=== PATIENT | male | born 1980 | race Two or more races ===

== ENCOUNTER 2017-08-22 15:31 | Emergency (ER) | payer SELFPAY ==
[2017-08-22 15:41] VITALS: TEMP 98.2; O2SAT 96
--- NOTE | 2017-08-22 15:50 | CPEKG ---
Heart Rate: 96 RR Interval: 625 P-R Interval: 156 QRSD Interval: 86 QT Interval: 340 QTC Interval: 430 P [place]: 28 QRS [place]: 6 T Wave [place]: 40 EKG Severity - NORMAL ECG - EKG Impression: SINUS RHYTHM Electronically Signed By: Mariann Gastelum 22-Aug-2017 22:22:43
[2017-08-22 16:05] LABS: % IMMATURE GRANULYOCYTES 0.6 % (0.0-1.1); ABSOLUTE IMMATURE GRANULOCYTES 0.04 10^3/uL (0.00-0.10); ADD DIFF? NO; ADD MORPH? NO; ADD SCAN? NO; ATYPICAL LYMPHOCYTE FLAG 10 (0-99); FRAGMENT RBC FLAG 10 (0-99); HEMATOCRIT 47.8 % (40.0-51.0); HEMOGLOBIN 16.9 g/dL (13.7-17.5); LEFT SHIFT FLG 0 (0-99); LIPEMIA HEMOLYSIS FLAG 90 (0-99); MEAN CELL HEMOGLOBIN 29.4 pg (27.9-34.1); MEAN CELL HEMOGLOBIN CONCENTR. 35.4 g/dL (32.4-36.7); MEAN CELL VOLUME 83.3 fL (81.5-99.8); MEAN PLATELET VOLUME 9.2 fL (8.7-11.7); PLATELET CLUMPS FLAG 10 (0-99); PLATELET COUNT 252 10^3/uL (150-400); RED BLOOD CELL COUNT 5.74 10^6/uL (4.40-6.38); RED CELL DISTRIBUTION WIDTH 12.5 % (11.5-15.2)
[2017-08-22 16:12] LABS: INR 0.91 (0.83-1.16); PROTIME(PATIENT) 12.5 SEC (12.0-15.0)
[2017-08-22 16:13] LABS: APTT 28.7 SEC (23.0-38.0)
[2017-08-22 16:16] LABS: ANION GAP 15 mEq/L (8-16); CARBON DIOXIDE 25 mEq/l (22-31); CHLORIDE 101 mEq/L (97-110); CREATININE 1.1 mg/dL (0.7-1.3); GLOMERULAR FILTRATION RATE > 60; GLUCOSE 84 mg/dL (70-100); POTASSIUM 3.9 mEq/L (3.5-5.2); SODIUM 141 mEq/L (134-144)
[2017-08-22 16:28] LABS: CREATINE KINASE-MB FRACTION 2.91 ng/mL (0.00-3.19); TROPONIN I < 0.012 ng/mL (0.000-0.034)
--- NOTE | 2017-08-22 16:33 | EDPHY ---
H & P Time Seen by Provider: 08/22/17 15:52 HPI/ROS: HPI Chest discomfort. 36-year-old male by private vehicle with his friend. This patient reports that he has had intermittent chest pain which she describes as mid substernal, sharp. The pain comes on randomly. He reports he has had this pain 2 to 3 times a month for the last 4-5 years. He reports the pain is sometimes associated with radiation to his left upper back but not always. He also describes having shortness of breath associated with the pain. He reports that the pain resolves with drinking water. However, he states that sometimes he drinks water when he has the pain and the water comes right back up and he can' t swallow it. He reports the pain came on again last night. It persisted through the night. Despite trying to drink water. He reports that it is better now that he is in the emergency department. He describes it is very mild and maybe 10% of what it was last night. He has never seen a registered medical assistant or physician for this pain. No known cardiac risk factors. Denies any family history of coronary artery disease. No history of hypertension. No known history of hyperlipidemia, hypertension or diabetes. He does not smoke cigarettes. ROS: Constitutional: No fever, no chills. No weakness. Eyes: No discharge. No changes in vision. ENT: No sore throat. No nasal congestion or rhinorrhea. Respiratory: No cough. No shortness of breath. Cardiac: No chest pain, no palpitations. Gastrointestinal: No abdominal pain, no vomiting, no diarrhea. Genitourinary: No hematuria. No dysuria or increased frequency with urination. Musculoskeletal: No back pain. No neck pain. No myalgias or arthralgias. Skin: No rashes. Neurological: No headache. No focal weakness or altered sensation. Past medical history: GERD. He takes omeprazole. Social history: Nonsmoker. Denies alcohol. He is here with his friend. Physical Exam: General Appearance: Alert, no distress. Large man. This patient is responding to questions appropriately and in full sentences. This patient appears well- hydrated and well-nourished. Eyes: Pupils equal and round no pallor or injection. No lid edema, erythema or injection. Respiratory: There are no retractions, lungs are clear to auscultation with good air movement bilaterally. Cardiovascular: Regular rate and rhythm. No murmur. Gastrointestinal: Abdomen is soft and nontender, no masses, bowel sounds normal. No focal tenderness at McBurney's point. No Leone sign. Neurological: Motor sensory function is grossly intact. Cranial nerves are normal. Gait is normal. Skin: Warm and dry, no rashes. Musculoskeletal: Neck is supple and nontender. No CVA tenderness bilaterally. Extremities are symmetrical. All joints range without pain or impingement. Psychiatric: No agitation. No depression. Database: EKG: EKG time is 3:47 p.m.; EKG shows a narrow complex normal sinus rhythm with a ventricular rate of 96. The DC, QRS, QT intervals are within normal limits. There are no ST-T wave changes indicative of ischemic or injury pattern. No evidence of right heart strain. Interpreted by me. Imaging: Chest x-ray AP portable; the cardiac mediastinal silhouette is unremarkable. No evidence of infiltrate or pneumothorax. No acute cardiopulmonary disease process noted. Interpreted by me. Procedures: Emergency department course: IV was placed. His vital signs have been reviewed. He is currently denying any significant pain. EKG obtained and reviewed by myself. 4:40 p.m., patient re-evaluated. Resting comfortably at this time. His emergency department workup is unremarkable. His history is consistent with an esophageal spasm or obstruction process. Based on his history as well as the results of his emergency department testing I feel that acute coronary syndrome , pulmonary embolism, aortic dissection, pneumomediastinum/Boerhaave syndrome, pancreatitis, biliary colic/cholecystitis are all unlikely. Plan will be to continue him on omeprazole which he has been taking for some time and have him follow up with Gastroenterology for endoscopy. I will also prescribe a limited course of Ativan to try if his pain returns. I did discuss my concerns about his chest pain. Strict return to emergency department precautions were reviewed with him. He feels comfortable being discharged and does not have any pain at this time. He understands his follow-up. All of his questions were answered. He was discharged in good condition with his friend. Differential Diagnosis: The differential diagnosis on this patient includes but is not limited to esophageal spasm, GERD. Acute coronary syndrome, aortic dissection, pulmonary embolism, pneumothorax, pneumomediastinum, biliary colic, pancreatitis unlikely. This represents a partial list of diagnoses considered. These considerations are based on history, physical exam, past history, reassessment and diagnostic testing. Smoking Status: Never smoked Constitutional: Initial Vital Signs Temperature (C) 36.8 C 08/22/17 15:38 Heart Rate 94 08/22/17 15:38 Respiratory Rate 20 08/22/17 15:38 Blood Pressure 118/77 08/22/17 15:38 O2 Sat (%) 96 08/22/17 15:38 O2 Delivery Mode Room Air Allergies/Adverse Reactions: No Known Allergies Allergy (Unverified 08/22/17 15:37) Home Medications: Medication Instructions Recorded Omeprazole 08/22/17 Medical Decision Making - Diagnostics Imaging Results: Imaging Impressions Chest X-Ray 08/22/17 15:52 Impression: Findings are within normal limits. - Data Points Laboratory Results: Laboratory Results 08/22/17 15:46 08/22/17 15:46 08/22/17 08/22/17 08/22/17 15:46 15:46 15:46 WBC 6.59 10^3/uL 10^3/uL (3.80-9.50) RBC 5.74 10^6/uL 10^6/uL (4.40-6.38) Hgb 16.9 g/dL g/dL (13.7-17.5) Hct 47.8 % % (40.0-51.0) MCV 83.3 fL fL (81.5-99.8) MCH 29.4 pg pg (27.9-34.1) MCHC 35.4 g/dL g/dL (32.4-36.7) RDW 12.5 % % (11.5-15.2) Plt Count 252 10^3/uL 10^3/uL (150-400) MPV 9.2 fL fL (8.7-11.7) Neut % (Auto) 51.3 % % (39.3-74.2) Lymph % (Auto) 32.9 % % (15.0-45.0) [place] % (Auto) 9.9 % % (4.5-13.0) Eos % (Auto) 4.2 % % (0.6-7.6) Baso % (Auto) 1.1 % % (0.3-1.7) Nucleat RBC Rel Count 0.0 % % (0.0-0.2) Absolute Neuts (auto) 3.38 10^3/uL 10^3/uL (1.70-6.50) Absolute Lymphs (auto) 2.17 10^3/uL 10^3/uL (1.00-3.00) Absolute Monos (auto) 0.65 10^3/uL 10^3/uL (0.30-0.80) Absolute Eos (auto) 0.28 10^3/uL 10^3/uL (0.03-0.40) Absolute Basos (auto) 0.07 10^3/uL 10^3/uL (0.02-0.10) Absolute Nucleated RBC 0.00 10^3/uL 10^3/uL (0-0.01) Immature Gran % 0.6 % % (0.0-1.1) Immature Gran # 0.04 10^3/uL 10^3/uL (0.00-0.10) PT 12.5 SEC SEC (12.0-15.0) INR 0.91 (0.83-1.16) APTT 28.7 SEC SEC (23.0-38.0) D-Dimer < 0.27 ug/mLFEU ug/mLFEU (0.00-0.50) Sodium 141 mEq/L mEq/L (134-144) Potassium 3.9 mEq/L mEq/L (3.5-5.2) Chloride 101 mEq/L mEq/L (97-110) Carbon Dioxide 25 mEq/l mEq/l (22-31) Anion Gap 15 mEq/L mEq/L (8-16) BUN 13 mg/dL mg/dL (7-23) Creatinine 1.1 mg/dL mg/dL (0.7-1.3) Estimated GFR > 60 Glucose 84 mg/dL mg/dL (70-100) Calcium 10.0 mg/dL mg/dL (8.5-10.4) Total Bilirubin Conjugated Bilirubin Unconjugated Bilirubin AST ALT Alkaline Phosphatase Creatine Kinase 211 IU/L IU/L (0-224) CK-MB (CK-2) Fraction 2.91 ng/mL ng/mL (0.00-3.19) Troponin I < 0.012 ng/mL ng/mL (0.000-0.034) Total Protein Albumin Lipase 08/22/17 15:41 WBC RBC Hgb Hct MCV MCH MCHC RDW Plt Count MPV Neut % (Auto) Lymph % (Auto) [place] % (Auto) Eos % (Auto) Baso % (Auto) Nucleat RBC Rel Count Absolute Neuts (auto) Absolute Lymphs (auto) Absolute Monos (auto) Absolute Eos (auto) Absolute Basos (auto) Absolute Nucleated RBC Immature Gran % Immature Gran # PT INR APTT D-Dimer Sodium Potassium Chloride Carbon Dioxide Anion Gap BUN Creatinine Estimated GFR Glucose Calcium Total Bilirubin 0.7 mg/dL mg/dL (0.1-1.4) Conjugated Bilirubin 0.3 mg/dL mg/dL (0.0-0.5) Unconjugated Bilirubin 0.4 mg/dL mg/dL (0.0-1.1) AST 31 IU/L IU/L (17-59) ALT 76 IU/L H IU/L (21-72) Alkaline Phosphatase 48 IU/L IU/L (38-126) Creatine Kinase CK-MB (CK-2) Fraction Troponin I Total Protein 8.0 g/dL g/dL (6.3-8.2) Albumin 4.6 g/dL g/dL (3.5-5.0) Lipase 91 IU/L IU/L (23-300) Medications Given: Discontinued Medications Lorazepam (Ativan 1 Mg Prepack#4) 1 btl TAKEHOME EDNOW ONE Stop: 08/22/17 17:19 Last Admin: 08/22/17 17:19 Dose: 1 btl Departure - Departure Disposition: Home, Routine, Self-Care Clinical Impression: Chest pain, Probable esophageal spasm Condition: Good Instructions: Lorazepam (By mouth), Chest Pain (ED), Esophageal Spasm (ED) Additional Instructions: Read and follow provided instructions. Follow-up with Gastroenterology, Dr. May or 1 of her partners, as discussed, this week for re-evaluation and consideration of endoscopy to further evaluate her pain. Take medication as prescribed. Ativan 1 mg tablets, take at night before sleeping or if pain returns. Do not drive while on this medication. It is very important you return to the emergency department immediately for return of your pain, worsening or persistent pain any change in her pain or other serious concerns. Referrals: J CARLOS ARROYO [Other] - As per Instructions Makayla May MD [Medical Doctor] - As per Instructions
[2017-08-22 16:45] LABS: ALBUMIN 4.6 g/dL (3.5-5.0); BILIRUBIN,TOTAL 0.7 mg/dL (0.1-1.4); BILIRUBIN-CONJUGATED 0.3 mg/dL (0.0-0.5); BILIRUBIN-UNCONJUGATED 0.4 mg/dL (0.0-1.1)
[2017-08-22] MEDS ORDERED: LORAZEPAM 1 MG PREPACK#4 BTL TAKEHOME ONE ×2 (17:16→17:18)
[2017-08-22 17:22] VITALS: BP 140/81; PULSE 72; RESP 18
== END 2017-08-22 17:23 | disposition home or self-care (01) ==
DX: R07.9 Chest pain, unspecified (principal)